=== PATIENT | female | born 1970 | race Caucasian/White ===

== ENCOUNTER → 2017-03-19 | Outpatient (CLI) | payer OTHER ==
[~2017-03-19] MED LIST: ADVIL200 M1; CYCLOBENZAPRINE5 MG PO; IBUPROFEN 600600 M1 PO; IBUPROFEN 800800 MG PO; LEXAPRO 10 MG T10 M1; NABUMETONE 750750 M1 PO; NORCO 5-325 TA1 EACH PO; TRAMADOL 50 MG50 MG PO; XANAX 0.5 MG0.5 MG PO; ZYRTEC10 MG PO
--- NOTE | ~2017-03-19 | EKG ---
[place] [address] [facility] [place] [address] ELECTROCARDIOGRAM REPORT Name: RIRICYNNIKHIL Room #: REG CLI [facility]#: [id number] Admission: 03/19/17 Attend Phys: Pat Aden DNP Discharge: Date of : 70 Report #: [id number] THIS REPORT FOR: //name// [facility] Test Date: 2017-03-19 Test Time: 09:44:16 Pat Name: NIKHIL CHICAS Department: Room: Gender: F Group Managing Director: J Luis COE : 1970 Requested By: Pat Aden Order Number: [id number] MD: Jeremy Newman Measurements Intervals [place] Rate: 48 P: 70 WV: 143 QRS: 81 QRSD: 115 T: 60 QT: 450 QTc: 402 Interpretive Statements Sinus bradycardia Otherwise no significant abnormality No previous ECG available for comparison Electronically Signed On 03-20-2017 10:07:35 CDT by Jeremy Newman [email or web address] <ELECTRONICALLY SIGNED> By: Jeremy Nemwan MD, [facility] 03/20/17 1007 0944 0944 Jeremy Newman MD, FACC /EPI
== END ==
LOC: CV 09:23
DX: R55 Syncope and collapse (principal); R00.2 Palpitations